=== PATIENT | female | born 1955 | race Asian ===

== ENCOUNTER 2024-05-06 12:21 | Day surgery (SDC) | payer OTHER ==
[~2024-05-06] VITALS: Ht 170.2 cm; Wt 69.4 kg
[~2024-05-06 12:21] MED LIST: ALBU90OI6 INH; ATOR40TA PO; Balanced Salt Epinephrine Irrigation Solution 500 mL IR SCH; ELIQUIS5 M2 PO; GUAI600T33 PO; LEVO750 PO; Lidocaine HCl/Pf 1% 5 ML VIAL XX SCH; METF500 PO; METO25ER PO; Moxifloxacin HCL 0.5 MG/0.1 ML 0.4MLSYR LEFTEYE SCH; NS 500 ML IV ONE; PHENYLEPHRINE\\TROPICAMIDE\\TETRACAINE OPHTHALMIC DILATING SOLN LEFTEYE PRN; PRED10 PO; Povidone-Iodine 450 DROP/30 ML Solution LEFTEYE SCH; Povidone-Iodine 450 DROP/30 ML Solution ONE; Prinivil10 MG PO; Tetracaine HCl/Pf 0.5% Opth Soln 4 ml ONE
[2024-05-06] MEDS ORDERED: NS 1,000 ML IV ONE (12:57)
[2024-05-06] MEDS ORDERED: FentaNYL Citrate 50 MCG/ML 2 ML Injection ONE (12:57)
[2024-05-06] MEDS ORDERED: Midazolam HCl 1MG / ML 2ML Vial ONE (12:58)
--- NOTE | 2024-05-06 12:59 | NUR ---
05/06/24 1259 Lily Soliman CALL LIGHT WITHIN REACH. TETRACAINE IN RIGHT EYE AT 1248 AND PLEDGETT IN AT 1230
[2024-05-06 13:36] VITALS: BP 123/68
[2024-05-06] MEDS ORDERED: NS 500 ML IV ONE (13:39)
--- NOTE | 2024-05-06 13:40 | NUR ---
05/06/24 1340 DYLAN PERDOMO ASSISTED IN CARE BY THE JOURNEYMAN MACHINIST TELEPHONE FOR INTERACTIONS WITH PATIENT ITA. ENGAGED IN DC INSTRUCTIOSN W/JOURNEYMAN MACHINIST ASSISTING. PT ABLE TO DENY PAIN/NAUSEA
== END 2024-05-06 13:40 | disposition home or self-care (01) ==
LOC: ORSCSDS 12:21
PROVIDERS: Student in an Organized Health Care Education/Training Program
PROC: 08RJ3JZ Replacement of Right Lens with Synthetic Substitute, Percutaneous Approach (ICD-10-PCS; principal; 2024-05-06 13:45)
DX: E11.36 Type 2 diabetes mellitus with diabetic cataract (principal); H25.813 Combined forms of age-related cataract, bilateral; H04.123 Dry eye syndrome of bilateral lacrimal glands; H35.89 Other specified retinal disorders; I48.91 Unspecified atrial fibrillation; I10 Essential (primary) hypertension; Z79.84 Long term (current) use of oral hypoglycemic drugs; Z79.01 Long term (current) use of anticoagulants; Z79.899 Other long term (current) drug therapy
CPT/HCPCS: 82947; J2250; J3010; J7030; J7040; V2632

== ENCOUNTER 2024-05-13 07:06 | Day surgery (SDC) | payer OTHER ==
[~2024-05-13] VITALS: Ht 170.2 cm; Wt 69.3 kg
[~2024-05-13 07:06] MED LIST changes: +Lidocaine HCl/Pf 1% 5 ML VIAL ONE
[2024-05-13] MEDS ORDERED: NS 500 ML IV ONE (07:52)
[2024-05-13] MEDS ORDERED: Midazolam HCl 1MG / ML 2ML Vial ONE (07:53)
[2024-05-13] MEDS ORDERED: FentaNYL Citrate 50 MCG/ML 2 ML Injection ONE (07:53)
[2024-05-13 08:58] VITALS: BP 140/69
== END 2024-05-13 09:17 | disposition home or self-care (01) ==
LOC: ORSCSDS 07:06
PROVIDERS: Student in an Organized Health Care Education/Training Program
PROC: 08RK3JZ Replacement of Left Lens with Synthetic Substitute, Percutaneous Approach (ICD-10-PCS; principal; 2024-05-13 08:30)
DX: E11.36 Type 2 diabetes mellitus with diabetic cataract (principal); H25.812 Combined forms of age-related cataract, left eye; Z96.1 Presence of intraocular lens; I10 Essential (primary) hypertension; H35.89 Other specified retinal disorders; H04.123 Dry eye syndrome of bilateral lacrimal glands; Z79.01 Long term (current) use of anticoagulants; Z79.84 Long term (current) use of oral hypoglycemic drugs; Z79.899 Other long term (current) drug therapy
CPT/HCPCS: 82947; J2001; J2003; J2250; J3010; J7040; V2632